=== PATIENT | male | born 1990 | race Hispanic/Latino ===

== ENCOUNTER 2025-03-09 12:48 | Emergency (ER) | payer SELFPAY ==
[2025-03-09 12:49] VITALS: BP 152/89; PULSE 76; RESP 16; TEMP 37.3; O2SAT 98; BMI 29.0
[2025-03-09 13:30] VITALS: PULSE 69; RESP 20; O2SAT 99
--- NOTE | 2025-03-09 13:44 | EDS_ITS ---
HPI History of Present Illness Chief Complaint: Poisoning Narrative Narrative: 34-year-old male who denies significant past medical history thinks he might be have ingested refrigerant/Freon gas. He relates history that he is from out of town but here for work at least for the next week. The hotel that he was staying in is more of a portable refrigerator with only a section that has a small area which becomes cold and accumulates ice, to make ice cubes. He states he was trying to clean it the other day, and may have hit the gas line. He had a leftover quesadilla that he placed within the refrigerator yesterday evening. This morning when he awoke at 8-8 30 he had it for breakfast. He states that it tasted strange. He then proceeded to have a small amount of vomiting. He denies headache or difficulty swallowing. No lightheadedness, no throat closing. He thinks he may have ingested a refrigerant, as he thinks that the refrigerant gas may have been leaking into his food. He states that the hotel has changed out his refrigerator. He presents for evaluation. [facility] Medical History no medical history no medical history Home Medications ?Medication ?Instructions ?Recorded ?Last Taken ?Type NK 03/09/25 Unknown History Allergy/AdvReac Type Severity Reaction Status Date / Time No Known Allergies Allergy Verified 03/09/25 12:51 Social History Smoking Status: Never smoker ROS ROS ED ROS Narrative Review of systems positive for a little vomiting this morning. No hematemesis, no difficulty swallowing, no throat closing, no lightheadedness, no headache. No chest pain or shortness of breath. EXAM Physical Exam Narrative Exam Narrative: Afebrile. Vital signs noted. Nontoxic-appearing. Cardiovascular examination reveals regular rate and rhythm. Lungs are clear to auscultation bilaterally. Abdomen is soft and nontender without guarding or rebound. Positive bowel sounds. Neurological examination is nonfocal, nonlateralizing. HEENT examination grossly unremarkable. Airway patent. No pharyngeal erythema. No drooling or trismus. Const Vital Signs: 03/09/25 12:49 03/09/25 12:59 03/09/25 12:59 Temperature 99.2 F H Temperature Source Oral Pulse Rate 76 Respiratory Rate 16 Respiratory Effort Normal Non-Labored Normal Non-Labored Respiratory Pattern Normal Blood Pressure 152/89 H Blood Pressure Mean 110 Pulse Ox 98 Oxygen Delivery Method Room Air 03/09/25 13:30 03/09/25 14:00 Temperature 99 F Temperature Source Pulse Rate 69 68 Respiratory Rate 20 H 16 Respiratory Effort Respiratory Pattern Blood Pressure 148/76 H Blood Pressure Mean 100 Pulse Ox 99 98 Oxygen Delivery Method MDM MDM MDM Narrative Medical decision making narrative: Patient thinks that he may have been exposed or ingested refrigerant, but was more in the form of a gas that had been leaking inside the refrigerator. With Freon being odorless and tasteless, I do not think that he has a toxicity. Pulse ox is 98% on room air without evidence of hypoxia. I offered to perform a chest x-ray, but he declined. I do feel that his medical screening examination is grossly unremarkable for an emergent process. I feel he can be discharged to follow-up. I offered him an antiemetic but he declined this as well. At this point in time, I feel he can be discharged to follow-up with a primary care provider. I reviewed return instructions to the emergency department with the patient. He is agreeable to the plan. Disposition is discharged home in stable condition. History & Record Review Discussion w/independent historian: Patient Additional record(s) reviewed:: No prior records Discharge Plan Triage Chief Complaint: Poisoning Other Complaint: Chest Pain ED Provider: Newton Hammonds Dx/Rx/DC Orders Clinical Impression: Encounter for medical screening examination, Vomiting Instructions: ED Screening Exam Medical Nonurgent Prescriptions: No Action NK Primary Care Provider: Care Physician,No Primary Referrals: Angely Loredo [employer]IAN-[facility] [[facility], [facility]] - As Needed Activity Restrictions/Additional Instructions: Return with difficulty swallowing, fever, increased vomiting, new or worsening symptoms. Print Language: Japanese Disposition Disposition: Home, Self Care Discharge Date/Time: 03/09/25 14:03
[2025-03-09 14:00] VITALS: BP 148/76; PULSE 68; RESP 16; TEMP 37.2; O2SAT 98
== END 2025-03-09 14:03 | disposition home or self-care (01) ==
PROVIDERS: Emergency Provider Emergency Medicine; Visit Provider Emergency Medicine
DX: R11.10 Vomiting, unspecified (principal)
CPT/HCPCS: 99283